=== PATIENT | male | born 1960 | race Caucasian/White ===

== ENCOUNTER 2016-12-05 07:12 | Emergency (ER) | payer OTHER ==
[~2016-12-05] VITALS: Ht 182.9 cm; Wt 108.9 kg
[~2016-12-05 07:12] MED LIST: ALBUTEROL MININEB NEB; ALBUTEROL17 GM INH; ALLEGRA PO; ALPRAZOLAM PO; APIDRA SOL100 UNIT/1; APIDRA SOL100 UNIT/1 SQ; AUGMENTIN PO; CLARITIN10 MG PO; COLACE PO; COMBIVENT U/D3 M1 INH; COREG3.125 MG PO; DIOVAN PO; DULOXETINE HCL60 MG PO; FLEXERIL10 MG PO; GABAPENTIN400 M2 PO; HALDOL PO; IBUPROFEN800 MG PO; LANTUS100 U/ML SUBQ; LANTUS100 UNITS/ SUBQ; LEVEMIR SUBQ; LEVEMIR100 UNITS/ SUBQ; LIPITOR20 MG PO; LISINOPRIL20 MG PO; LORTAB 10/500 T1 TAB PO; LORTAB 7.5-3251 EACH PO; MILK OF MAGNESIA PO; NORCO 10/3251 TAB PO; NORVASC PO; NOVALOG INSULIN; PROAIR HFA8.5 GM INH; PROTONIX PO; SPIRIVA RESPIMAT4 G1 INH; SPIRIVA18 MCG INH; SYMBICORT 160/4.6 G1 INH; SYMBICORT80 INH; SYNTHROID PO; VALSARTAN-HCTZ1 EAC3 PO; VOLTAREN75 MG PO; XANAX0.5 M1 PO; ZYRTEC-D T1 TAB.SR . PO
[2016-12-05 08:24] LABS: BASOPHIL# 0.1 X10e3 (0-0.3); BASOPHIL% 0.9 % (0-2.5); EOSINOPHIL# 0.1 X10e3 (0-0.7); EOSINOPHIL% 1.5 % (0.0-7.0); HEMATOCRIT 40.7 % (38.0-50.0); HEMOGLOBIN 13.9 gm/dL (13.0-16.0); LYMPHOCYTE# 1.5 X10e3 (1.0-3.5); LYMPHOCYTE% 17.3 % (17.0-45.0); MEAN CELL VOLUME 89.4 FL (83-96); MEAN CORPUSCULAR HEMOGLOBIN 30.6 PG (28-34); MEAN CORPUSCULAR HGB CONC 34.3 g/dL (30-36); MEAN PLATELET VOLUME 8.3 FL (6.5-11.5); MONOCYTE# 0.8 X10e3 (0-1.0); MONOCYTE% 9.6 % (3.0-12.0); NEUTROPHIL# 6.3 X10e3 (1.5-7.1); NEUTROPHIL% 70.7 % (40-75); PLATELET COUNT 292 X10e3 (140-420); RED BLOOD COUNT 4.55 X10e (3.90-5.60); RED CELL DISTRIBUTION WIDTH 13.2 % (11.0-15.5); WHITE BLOOD COUNT 8.9 X10e3 (4.0-10.5)
[2016-12-05 08:26] LABS: DIFF IND NO
[2016-12-05 08:49] LABS: BUN/CREATININE RATIO 16.36; CALCIUM SERUM 8.5 mg/dL (8.4-10.2); CREATININE SERUM 1.1 mg/dL (0.6-1.4); GLOM FILT RATE Estimated 75.2 mL/min (>60); POTASSIUM 4.2 mmol/L (3.5-5.1)
[2016-12-05 10:04] LABS: URINE SOURCE CLEAN CATCH
[2016-12-05 10:14] LABS: URINE APPEARANCE CLEAR; URINE BILIRUBIN NEG (NEG); URINE BLOOD NEG (NEG); URINE COLOR YELLOW; URINE GLUCOSE >1000 MG/DL (NEG); URINE KETONE NEG (NEG); URINE LEUKOCYTE ESTERASE NEG (NEG); URINE NITRATE NEG (NEG); URINE PH 6.5 (5-8); URINE PROTEIN NEG (NEG); URINE SPECIFIC GRAVITY 1.019 (1.003-1.035); URINE UROBILINOGEN 0.2 MG/DL (NEG)
[2016-12-05 10:19] LABS: CULTURE INDICATED? NO
== END 2016-12-05 13:40 | disposition home or self-care (01) ==
LOC: CED 07:12
PROVIDERS: Nurse Practitioner
DX: S01.81XA Laceration without foreign body of other part of head, initial encounter (principal); E11.65 Type 2 diabetes mellitus with hyperglycemia; J44.9 Chronic obstructive pulmonary disease, unspecified; I11.9 Hypertensive heart disease without heart failure; Z79.899 Other long term (current) drug therapy; W22.8XXA Striking against or struck by other objects, initial encounter; Y92.69 Other specified industrial and construction area as the place of occurrence of the external cause
CPT/HCPCS: 12011; 36415; 80048; 81003; 82947; 85025; 90471; 90715; 96361; 96374; 99284